=== PATIENT | female | born 2000 | race Caucasian/White ===

== ENCOUNTER → 2025-07-18 | Outpatient (CLI) | payer OTHER, SELFPAY ==
--- OUTSIDE RECORDS SUMMARY | 2025-07-18 12:06 | XMS RPT_ITS | CCD ---
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 [employer] Name Role Phone Emerita, Kayleigh Unavailable Unavailable Emerita, Kayleigh Unavailable Unavailable Emerita, Kayleigh Unavailable Unavailable Manas Stephens Attending Provider Manas Ge Attending Unavailable EMERITA ABREU~[phone], EMERITA Martinez Attending Unavailable EMERITA ABREU~[phone], EMERITA Martinez Admitting Unavailable KAYLEIGH SANTIZO MD Primary Care Unavailable Allergies Allergy Classification Reported Allergen(s) Allergy Type Date of Onset Reaction(s) Facility (1 source) Penicillins Allergy to substance 03-12-2025 Rash [facility] (1 source) Penicillins Drug allergy (disorder) 03-12-2025 [facility] Repository Medications Current Medications Medication Drug Class(es) Dates Sig (Normalized) Sig (Original) sulfamethoxazole 800 mg / trimethoprim 160 mg oral tablet (1 source) Dihydrofolate Reductase Inhibitor Antibacterial, Sulfonamide Antimicrobial Start: 03-12-2025 Sulfamethoxazole -Trimethoprim 800-160 mg tablet Active 1 {tbl} PO TWICE A DAY 10 5 0 March 12, 2025 12:00am March 16, 2025 12:00am Problems Problem Classification Problem Date Documented Da te Episodic/Chronic Disorders of lipid metabolism (2 sources) Hyperlipidemia, unspecified; Translations: [HYPERLIPIDEMIA UNSPECIFIED] Onset: 05-30-2025 Chronic Esophageal disorders (1 source) Gastro-esophageal reflux disease without esophagitis; Translations: [GERD WITHOUT ESOPHAGITIS] Onset: 05-30-2025 Chronic Other skin disorders (1 source) Nonscarring hair loss, unspecified; Translations: [NONSCARRING HAIR LOSS UNSPECIFIED] Onset: 05-30-2025 Episodic Unclassified (2 sources) Unspecified lump in the left breast, upper inner quadrant; Translations: [Unspecified lump in the left breast, upper inner quadrant] Onset: 10-16-2017 Unclassified (1 source) Patient condition finding 03-12-2025 Results Test Name Value Interpretation Reference Range Facil ity CBC with Diffon 05-27-2025 BA# 0.0 x(10)3/cumm Normal 0.0-0.1 [facility] Comment on above: Order Comment: Will be reflexed to manua l differential / peripheral smear per appropriate criteria / Protocols. Performed By: #### C BCDIFF #### [address] [address] Basophils/100 WBC (Bld) 0.5 % Normal 0.0-1.0 [facility] Comment on above: Order Comment: Will be reflexed to manua l differential / peripheral smear per appropriate criteria / Protocols. Performed By: #### C BCDIFF #### [address] [address] EO# 0.1 x(10)3/cumm Normal 0.0-0.4 [facility] Comment on above: Order Comment: Will be reflexed to manua l differential / peripheral smear per appropriate criteria / Protocols. Performed By: #### C BCDIFF #### [address] [address] Eosinophils/100 WBC (Bld) 1.2 % Normal 0.0-6.1 [facility] Comment on above: Order Comment: Will be reflexed to manua l differential / peripheral smear per appropriate criteria / Protocols. Performed By: #### C BCDIFF #### [address] [address] Erythrocyte distribution width (RBC) [Ratio] 13.3 % Normal 11.1-15.3 [facility] Comment on above: Order Comment: Will be reflexed to manua l differential / peripheral smear per appropriate criteria / Protocols. Performed By: #### C BCDIFF #### [address] [address] Hematocrit (Bld) [Volume fraction] 43.1 % Normal 34.6-45.0 [facility] Comment on above: Order Comment: Will be reflexed to manua l differential / peripheral smear per appropriate criteria / Protocols. Performed By: #### C BCDIFF #### [facility] [address] [place] [address] Hemoglobin (Bld) [Mass/Vol] 14.3 g/dL Normal 11.5-15.5 [facility] Comment on above: Order Comment: Will be reflexed to manua l differential / peripheral smear per appropriate criteria / Protocols. Performed By: #### C BCDIFF #### [address] [address] LY# 1.7 x(10)3/cumm Normal 0.8-2.9 [facility] Comment on above: Order Comment: Will be reflexed to manua l differential / peripheral smear per appropriate criteria / Protocols. Performed By: #### C BCDIFF #### [address] [address] Lymphocytes/100 WBC (Bld) 27.9 % Normal 12.2-42.6 [facility] Comment on above: Order Comment: Will be reflexed to manua l differential / peripheral smear per appropriate criteria / Protocols. Performed By: #### C BCDIFF #### [address] [address] MCH (RBC) [Entitic mass] 30.4 pg Normal 27.2-33.6 [facility] Comment on above: Order Comment: Will be reflexed to manua l differential / peripheral smear per appropriate criteria / Protocols. Performed By: #### C BCDIFF #### [address] [address] MCHC (RBC) [Mass/Vol] 33.2 g/dL Normal 32.9-35.3 [facility] Comment on above: Order Comment: Will be reflexed to manua l differential / peripheral smear per appropriate criteria / Protocols. Performed By: #### C BCDIFF #### [address] [address] MCV (RBC) [Entitic vol] 91.5 fL Normal 81.3-96.7 [facility] Comment on above: Order Comment: Will be reflexed to manua l differential / peripheral smear per appropriate criteria / Protocols. Performed By: #### C BCDIFF #### [address] [address] MO# 0.3 x(10)3/cumm Normal 0.2-0.8 [facility] Comment on above: Order Comment: Will be reflexed to manua l differential / peripheral smear per appropriate criteria / Protocols. Performed By: #### C BCDIFF #### [address] [address] Monocytes/100 WBC (Bld) 5.8 % Normal 3.3-11.6 [facility] Comment on above: Order Comment: Will be reflexed to manua l differential / peripheral smear per appropriate criteria / Protocols. Performed By: #### C BCDIFF #### [address] [address] NE# 3.8 x(10)3/cumm Normal 1.3-7.4 [facility] Comment on above: Order Comment: Will be reflexed to manua l differential / peripheral smear per appropriate criteria / Protocols. Performed By: #### C BCDIFF #### [address] [address] Neutrophils/100 WBC (Bld) 64.6 % Normal 44.9-78.8 [facility] Comment on above: Order Comment: Will be reflexed to manua l differential / peripheral smear per appropriate criteria / Protocols. Performed By: #### C BCDIFF #### [address] [address] Platelet mean volume (Bld) [Entitic vol] 8.0 fL Normal 6.4-10.0 [facility] Comment on above: Order Comment: Will be reflexed to manua l differential / peripheral smear per appropriate criteria / Protocols. Performed By: #### C BCDIFF #### [address] [address] PLT 285 x(10)3/cumm Normal 138-367 [facility] Comment on above: Order Comment: Will be reflexed to manua l differential / peripheral smear per appropriate criteria / Protocols. Performed By: #### C BCDIFF #### [facility] [address] [place] [address] Plt Morph Normal [facility] Comment on above: Order Comment: Will be reflexed to manua l differential / peripheral smear per appropriate criteria / Protocols. Performed By: #### C BCDIFF #### [facility] [address] [place] [address] RBC 4.71 X(10)6/cumm Normal 3.90-5.10 [facility] Comment on above: Order Comment: Will be reflexed to manua l differential / peripheral smear per appropriate criteria / Protocols. Performed By: #### C BCDIFF #### [facility] [address] [place] [address] RBC Morph cont Normal [facility] Comment on above: Order Comment: Will be reflexed to manua l differential / peripheral smear per appropriate criteria / Protocols. Performed By: #### C BCDIFF #### [facility] [address] [place] [address] RBC morphology finding Nom (Bld) Normal [facility] Comment on above: Order Comment: Will be reflexed to manua l differential / peripheral smear per appropriate criteria / Protocols. Performed By: #### C BCDIFF #### [facility] [address] [place] [address] WBC 5.9 x(10)3/cumm Normal 3.6-10.3 [facility] Comment on above: Order Comment: Will be reflexed to manua l differential / peripheral smear per appropriate criteria / Protocols. Performed By: #### C BCDIFF #### [facility] [address] [place] [address] WBC Morph Normal [facility] Comment on above: Order Comment: Will be reflexed to manua l differential / peripheral smear per appropriate criteria / Protocols. Performed By: #### C BCDIFF #### [facility] [place] [id number] Comprehensive Metabolic [facility] 05-27-20252020 CKD-EPI Estimated Glomerular Filtration Rate (eGFR) is calculated using the 2020 CKD-EPI creatinine equation. This equation uses serum creatinine, sex and age for calculating the eGFR. Normal [facility] Comment on above: Performed By: #### T SH, LIPIDDL, CMP #### [place] [id number] Albumin [Mass/Vol] 4.4 g/dL Normal 3.5-5.2 [facility] Comment on above: Performed By: #### T SH, LIPIDDL, CMP #### [place] [id number] ALP [Catalytic activity/Vol] 63 U/L Normal 35-129 [facility] Comment on above: Performed By: #### T SH, LIPIDDL, CMP #### [place] [id number] ALT [Catalytic activity/Vol] 17 U/L Normal <=41 [facility] Comment on above: Performed By: #### T SH, LIPIDDL, CMP #### [place] [id number] Anion gap [Moles/Vol] 9 mmol/L Normal 8-15 [facility] Comment on above: Performed By: #### T SH, LIPIDDL, CMP #### [place] [id number] AST [Catalytic activity/Vol] 18 U/L Normal <=40 [facility] Comment on above: Performed By: #### T SH, LIPIDDL, CMP #### [place] [id number] Bili, Total 0.5 mg/dL Normal <=1.2 [facility] Comment on above: Performed By: #### T SH, LIPIDDL, CMP #### [place] [id number] Calcium [Mass/Vol] 9.2 mg/dL Normal 8.6-10.6 [facility] Comment on above: Performed By: #### T SH, LIPIDDL, CMP #### [facility] [address] [place] [address] Chloride [Moles/Vol] 102 mmol/L Normal 98-107 [facility] Comment on above: Performed By: #### T SH, LIPIDDL, CMP #### [facility] [address] [place] [address] CO2 [Moles/Vol] 26 mmol/L Normal 22-29 [facility] Comment on above: Performed By: #### T SH, LIPIDDL, CMP #### [facility] [address] [place] [address] Creatinine [Mass/Vol] 0.8 mg/dL Normal 0.5-1.2 [facility] Comment on above: Performed By: #### T SH, LIPIDDL, CMP #### [facility] [address] [place] [address] eGFR 112 mL/min/1.73sqm Normal >=60 [facility] Comment on above: Performed By: #### T SH, LIPIDDL, CMP #### [facility] [address] [place] [address] Glucose [Mass/Vol] 94 mg/dL Normal 74-109 [facility] Comment on above: Performed By: #### T SH, LIPIDDL, CMP #### [facility] [address] [place] [address] Potassium [Moles/Vol] 4.3 mmol/L Normal 3.4-5.1 [facility] Comment on above: Performed By: #### T SH, LIPIDDL, CMP #### [facility] [address] [place] [address] Prot Total 6.8 g/dL Normal 6.4-8.3 [facility] Comment on above: Performed By: #### T SH, LIPIDDL, CMP #### [facility] [address] [place] [address] Sodium [Moles/Vol] 137 mmol/L Normal 136-145 [facility] Comment on above: Performed By: #### T SH, LIPIDDL, CMP #### [facility] [address] [place] [address] Urea nitrogen [Mass/Vol] 9 mg/dL Normal 6-23 [facility] Comment on above: Performed By: #### T SH, LIPIDDL, CMP #### [facility] [address] [place] [address] Lipid Profile w/ Dir LDL if [place] 05-27-2025 Cholesterol [Mass/Vol] 186 mg/dL Normal [facility] Comment on above: Order Comment: Refle xes to Direct LDL wh en Triglycerides are >400. Performed By: #### T SH, LIPIDDL, CMP #### [address] [address] Cholesterol in HDL [Mass/Vol] 57 mg/dL Normal >=40 [facility] Comment on above: Order Comment: Refle xes to Direct LDL wh en Triglycerides are >400. Performed By: #### T SH, LIPIDDL, CMP #### [address] [address] Cholesterol in LDL [Mass/Vol] 112 mg/dL High <=99 [facility] Comment on above: Order Comment: Refle xes to Direct LDL wh en Triglycerides are >400. Performed By: #### T SH, LIPIDDL, CMP #### [address] [address] LDL Calc Comment LDL CALCULATION (CHOL-HDL) - (TRIG/5) Normal [facility] Comment on above: Order Comment: Refle xes to Direct LDL wh en Triglycerides are >400. Performed By: #### T SH, LIPIDDL, CMP #### [address] [address] Triglyceride [Mass/Vol] 83 mg/dL Normal <=149 [facility] Comment on above: Order Comment: Refle xes to Direct LDL wh en Triglycerides are >400. Performed By: #### T SH, LIPIDDL, CMP #### [address] [address] VLDL Calc 17 mg/dL Normal 14-48 [facility] Comment on above: Order Comment: Refle xes to Direct LDL wh en Triglycerides are >400. Performed By: #### T SH, LIPIDDL, CMP #### [facility] [address] [place] [address] TSHon 05-27-2025 Biotin Interference Samples should not be taken from patients receiving therapy with high biotin doses (i.e. >5mg/day) until at least 8 hours following the last biotin administration. Normal [facility] Comment on above: Performed By: #### T SH, LIPIDDL, CMP #### [facility] [address] [place] [address] TSH 1.52 uIU/mL Normal 0.27-4.20 [facility] Comment on above: Performed By: #### T SH, LIPIDDL, CMP #### [facility] [address] [place] [address] Urgent Care Visit Reporton 0 03-12-2025 Urgent Care Visit Report [facility] [address], [address] [place] [id number] OFFICE VISIT Date of Service: 03/12/25 MR#: [id number] Acct: [id number] Name: LYNN BALDERAS Rep #: [id number] : 2000 Provider: RENA Powell Age/Sex: 25/F Location: [facility] Status: Signed Intake Vital Signs 03/12/25 12:11 Height 5 ft 2 in Weight: 213 lb BMI 38.9 BP 114/62 Blood Pressure Location Lt brachial Position Sitting Respiration 16 Pulse 64 Pulse Source NIBP Temp 98.2 F Temp Source Oral Pulse Oximetry (%) 98 Oxygen Delivery Method room air Intake Visit Reasons: CUT ON R THUMB Chief Complaint: right thumb wound 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 active bleeding. past due on Tdap, declines updating. wound cleansed with Hibiclens, irrigated with 400cc sterile saline. saline moistened gauze applied while awaiting provider. [facility] Medical History (Updated 03/12/25 @ 13:14 by RENA Powell) No active medical problems Surgical History (Updated 03/12/25 @ 12:14 by Meagan Carver) No pertinent past surgical history Family History (Updated 03/12/25 @ 12:14 by Meagan Carver) Other Diabetes Social History (Updated 03/12/25 @ 12:14 by Meagan Carver) Smoking Status: Never smoker alcohol intake: current substance use type: does not use HPI HPI Chief Complaint: right thumb wound Details: LYNN BALDERAS, is a 25 F who presents to the office today for evaluation of finger injury. Patient states that she injured her first digit of her right hand this morning when using a cheese grater. Patient states that a small chunk was pulled from the dorsal aspect of her thumb and was bleeding steadily, pressure was applied and patient came to the clinic for evaluation. Patient states that the wound is slightly painful but without other symptoms at this time. She is unsure of tetanus status but declines Tdap today. ROS Const Constitutional: No chills, fatigue or fever(s) Musc Musculoskeletal: No joint pain, joint swelling, limited range of motion or stiffness Skin Skin: Positive for wounds; No redness, rash, sores or skin swelling Endo Endocrine: No fatigue Exam Const General: cooperative, healthy appearing, comfortable and no acute distress Skin Other: Small wound of the dorsal aspect of the first digit of the right hand overlying the IP joint. The diameter of the wound is approximately 7mm wide and 10mm in length, the wound appears shallow with slight bleeding during exam. No signs of retained foreign body or infection of surrounding tissue. Neuro Sensory Exam: no sensory deficits noted Extrem General: full ROM (right thumb) and capillary refill normal Coding Level of Care Code New Pt Off vis,new,level 3 Patient Type New History Expanded Problem Focused Exam Expanded Problem Focused Medical Decision Making Low Complexity Diagnoses Open wound of finger, initial encounter S68.678I Encounter type: initial encounter Assessment and Plan Assessment and Plan (1) Finger wound, simple, open: Status: Acute Qualifiers: Encounter type: initial encounter Qualified Code(s): S61.209A - Unspecified open wound of unspecified finger without damage to nail, initial encounter Plan: Due to shallow depth and location overlying the IP joint of the right thumb will forego primary closure at this time and allow wound to heal by secondary intention. Digit splinted to prevent repetitive flexion which might delay appropriate healing, wound care reviewed. Will initiate Abx as indicated below for infection prophylaxis and f/u with PCP or back in the [facility] if persistent or worsening despite treatment. Patient voiced understanding and agreement with plan. Medications: New sulfamethoxazole-tri methoprim 800-160 mg 1 TAB PO BID 5 days 10 tabs 0RF Clinical Quality Measures Falls Risk Screening/Assistive Devices Have you fallen in the past year?: No 03/12/25 1315 Date Manas Alvarez Signature: Date (if applicable) CC: Normal [facility] US Breast Limited Lefton US Breast Limited Left Patient Name: LYNN BALDERAS Ultrasound Exam Date/Time 10/16/2017 08:20:35 EST Exam US Breast Limited Left Ordering Physician MD EMERITA, KAYLEIGH MCCALL Accession Number [id number] CPT4 Codes 93654 () Reason For Exam mastalgia, breast lump Report PATIENT HISTORY: Taking hormonal contraceptives beginning at age 14. Patient has never smoked. Patient's BMI is 29.8. REASON FOR EXAM: clinical finding. INDICATED PROBLEM: Indicated problem(s): bilateral palpable abnormality. PROCEDURE: US BREAST LIMITED RIGHT: OCTOBER 16, 2017 - Standard views. No prior studies available for comparison. This is a 17-year-old who presents with bilateral breast lumps. TARGETED BILATERAL BREAST ULTRASOUND: Right breast: Targeted to the site of the lump palpated by the patient's physician at the 11:00 position imaging demonstrates overlapping glandular tissue. Left breast: The patient's physician palpated a lump within the inferior medial aspect (per written order) and the patient also noted a lump possibly palpated by the physician at the 11:00 position. Both sites were scanned with imaging demonstrating overlapping glandular tissue. US BREAST LIMITED LEFT: OCTOBER 16, 2017 - Standard views. ASSESSMENT: Category 1 Negative (Overall) Right breast US Breast Ltd R: . The bilateral breast lumps correspond with overlapping glandular tissue. RECOMMENDATION: Clinical correlation of both breasts. Final Signed Date and Time: 10/16/2017 8:21 am Signed by: MD VASQUEZ JENNIFER R [facility] US Breast Limited Righton US Breast Limited Right Patient Name: LYNN BALDERAS Ultrasound Exam Date/Time 10/16/2017 08:20:43 EST Exam US Breast Limited Right Ordering Physician MD EMERITA, KAYLEIGH MCCALL Accession Number [id number] CPT4 Codes 12189 () Reason For Exam mastalgia, breast lump Report PATIENT HISTORY: Taking hormonal contraceptives beginning at age 14. Patient has never smoked. Patient's BMI is 29.8. REASON FOR EXAM: clinical finding. INDICATED PROBLEM: Indicated problem(s): bilateral palpable abnormality. PROCEDURE: US BREAST LIMITED RIGHT: OCTOBER 16, 2017 - Standard views. No prior studies available for comparison. This is a 17-year-old who presents with bilateral breast lumps. TARGETED BILATERAL BREAST ULTRASOUND: Right breast: Targeted to the site of the lump palpated by the patient's physician at the 11:00 position imaging demonstrates overlapping glandular tissue. Left breast: The patient's physician palpated a lump within the inferior medial aspect (per written order) and the patient also noted a lump possibly palpated by the physician at the 11:00 position. Both sites were scanned with imaging demonstrating overlapping glandular tissue. US BREAST LIMITED LEFT: OCTOBER 16, 2017 - Standard views. ASSESSMENT: Category 1 Negative (Overall) Right breast US Breast Ltd R: . The bilateral breast lumps correspond with overlapping glandular tissue. RECOMMENDATION: Clinical correlation of both breasts. Final Signed Date and Time: 10/16/2017 8:21 am Signed by: MD VASQUEZ JENNIFER R [facility] Vital Signs Date Time Vital Sign Value Performing Clinician Faci lity 03-12-2025 12:11-0400 Body height 157.48 cm Luke Luma PA Work Phone: [facility] 03-12-2025 12:11-0400 Body mass index (BMI) [Ratio] 38.9 kg/m2 Luke Luma PA Work Phone: [facility] 03-12-2025 12:11-0400 Body temperature 98.2 [degF] Luke Luma PA Work Phone: [facility] 03-12-2025 12:11-0400 Body weight 96.61 kg Luke Luma PA Work Phone: [facility] 03-12-2025 12:11-0400 Diastolic blood pressure 62 mm[Hg] Luke Luma PA Work Phone: [facility] 03-12-2025 12:11-0400 Heart rate 64 /min Luke Luma PA Work Phone: [facility] 03-12-2025 12:11-0400 Respiratory rate 16 /min Luke Luma PA Work Phone: [facility] 03-12-2025 12:11-0400 SaO2% (BldA) [Mass fraction] 98 % Luke Luma PA Work Phone: [facility] 03-12-2025 12:11-0400 Systolic blood pressure 114 mm[Hg] Luke Luma PA Work Phone: [facility] Encounters Encounter Date Encounter Type Care Provider Facility Start: 05-27-2025 End: 05-27-2025 ambulatory EMERITA SANTIZO MD~[id number] [facility] Start: 03-12-2025 End: 03-12-2025 Patient encounter procedure Manas CHASE [facility] Work Phone: Start: 03-12-2025 End: 03-12-2025 ambulatory Manas Ge [facility] Start: 10-16-2017 Ambulatory Kayleigh Emerita [facility] Payers Date Payer Category Payer Self-pay 2000 Unknown [id number] 1961 Unknown [id number] Unknown Unknown [id number] Social History Date Type Detail Facility Start: 03-12-2025 [facility] Start: 2000 Sex Assigned At Female [facility] Evaluation note Note Date & Type Note Facility Evaluation note No assessment information availa [facility] Work Phone: Reason for referral (narrative) Note Date & Type Note Facility Reason for referral (narrative) No reason for referral information available [facility] Work Phone: Summary Purpose Family History No Family History Records Found Relationship Condition Age at Onset Recorded Date/T lupe Not Specified Diabetes mellitus Unknown Advance Directives No Advanced Directives Records FoundNo Advanced Directives Records FoundNo Advanced Directives Records FoundNo Advanced Directives Records Found Chief Complaint and Reason for Visit Chief Complaint Admit Date CUT ON R THUMB March 12, 2025 12:0 3pm Additional Source Comments INFORMATION SOURCE (unrecogn ized section and content) DATE CREATED AUTHOR 02/06/2018 [facility] DATE CREATED AUTHOR AUTHOR'S ORGANIZ ATION 03/13/2025 [facility] DATE CREATED AUTHOR AUTHOR'S ORGANIZ ATION 05/30/2025 [facility] [facility] Teams (unrecognized sec tion and content) Team Status: Inactive Member Role/Relationship Status Dates RENA Powell Attending Provider Active Start: March 12, 2025 End: March 12, 2025 Goals (unrecognized section and content) Goals may be documented in a n alternate section FOR RECORDS PERTAINING TO PATIENTS WHO ARE OR HAVE BEEN ENROLLED IN A CHEMICAL DEPENDENCY/SUBSTANCEABUSE PROGRAM, SOME INFORMATION MAY BE OMITTED. This clinical summary was aggregated from multiple sources. Caution should be exercised in using it in the provision of clinical care. This summary normalizes information from multiple sources, and as a consequence, information in this document may materially change the coding, format and clinical context of patient data. In addition, data may be omitted in some cases. CLINICAL DECISIONS SHOULD BE BASED ON THE PRIMARY CLINICAL RECORDS. [facility] [employer] [facility] provides no warranty or guarantee of the accuracy or completeness of information in this document.
[2025-07-18 13:21] LABS: PTHIN 26 pg/mL (11-61)
[2025-07-18 13:25] LABS: AST(SGOT) 22 U/L (<=31); Alanine Aminotransfer ALT/SGPT 23 U/L (<=34); Albumin, Serum 4.1 g/dL (3.5-5.0); Alkaline Phosphatase 58 U/L (35-104); Anion Gap 10 (5-15); BUN 8 mg/dL (4-19); BUN/Creat Ratio 12.1 RATIO (10-20); Calcium 8.9 mg/dL (7.6-11.0); Calcium,Total 8.9 mg/dL (7.6-11.0); Carbon Dioxide 24.3 mmol/L (21.0-32.0); Chloride 104 mmol/L (98-108); Ferritin 54 ng/mL (22-378); Globulin 2.6 g/dL (2.2-4.2); Glucose 86 mg/dL (70-99); Potassium 4.0 mmol/L (3.3-5.1)
== END | disposition home or self-care (01) ==
LOC: MTLAB 10:04
PROVIDERS: Referring Provider Dermatology Pediatric Dermatology; Visit Provider Dermatology Pediatric Dermatology
DX: E28.2 Polycystic ovarian syndrome (principal)
CPT/HCPCS: 36415; 80053; 82310; 82728; 83970; 86038; 86376